=== PATIENT | male | born 1960 | race Caucasian/White ===

== ENCOUNTER → 2020-03-12 | Outpatient (CLI) | payer BC ==
[~2020-03-12] MED LIST: LIDOCAINE20 MG/1 ML PO; NORCO 5-325 TA1 EACH PO; SEPTRA DS; TYLENOL325 MG PO; ULTRAM 50MG50 MG PO; [UNRECOGNIZED DRUG - OTHER] MT; [UNRECOGNIZED DRUG - OTHER] PO; [UNRECOGNIZED DRUG - OTHER] PO
--- NOTE | 2020-03-12 11:36 | Diagnostic Imaging Report ---
HISTORY: ^[id number] ^[id number] ^THROMBOCYTOPENIA COMPARISON: None. TECHNIQUE: Ultrasound examination of the abdomen was performed with spectral and color Doppler imaging. FINDINGS: Liver: The liver is normal in size with increased echogenicity. No focal lesions. The main portal vein measures 0.9 cm. Biliary: No stones. No sludge, pericholecystic fluid or wall thickening. Negative sonographic Mcgowan's sign. Common bile duct measures 0.3 cm. No intrahepatic biliary ductal dilatation. Spleen: No splenomegaly. Pancreas: Visualized portions are unremarkable. Kidneys: The kidneys are normal in size without hydronephrosis nor sonographically evident solid mass lesion. Midline Vessels: Visualized portions of the IVC and aorta are unremarkable. Peritoneum: No free fluid. IMPRESSION: Echogenic liver, may be seen in steatosis/inflammation. Correlate with laboratory values. Signed by: Jeanmarie Howell MD on 03/12/2020 11:33 AM
== END ==
LOC: US 10:42
PROVIDERS: ATTEND Radiology Body Imaging
DX: D69.6 Thrombocytopenia, unspecified (principal)
CPT/HCPCS: 76700